=== PATIENT | female | born 1955 | race Caucasian/White ===

== ENCOUNTER → 2017-03-25 | Outpatient (CLI) | payer OTHER | LOC: BMCIMAGING 15:11 | PROVIDERS: ATTEND Internal Medicine | DX: Z12.31 Encounter for screening mammogram for malignant neoplasm of breast (principal); Z80.3 Family history of malignant neoplasm of breast | CPT/HCPCS: G0202 ==

== ENCOUNTER 2017-06-04 12:58 | Emergency (ER) | payer OTHER ==
[2017-06-04 13:17] VITALS: BP 141/94; PULSE 83; RESP 16; TEMP 97.7; O2SAT 95
[2017-06-04] MEDS ORDERED: DEXAMETHASONE 4 MG TAB PO ONE (14:54)
--- NOTE | 2017-06-04 14:54 | EDPHY ---
General - History Smoking Status: Never smoked Time Seen by Provider: 06/04/17 14:43 Narrative: CHIEF COMPLAINT: Possible allergic reaction HISTORY OF PRESENT ILLNESS: Patient presents with complaints of possible allergic reaction. She has been taking Macrobid from her primary care physician due to urinary tract infection. She completed the medication on Friday evening. Late Friday night into Friday morning she noted some rash. The rash started on the right hand, right leg and buttocks. This was a pruritic, raised, plaque type rash. It is steadily worsened to the point that it "is everywhere now." No chest pain or shortness of breath but she has noted some tingling of the lips and tongue today. Symptoms have improved with Benadryl but not resolved. She contacted her primary care physician, and they instructed her to come to the Urgent Care. She went to urgent care and they sent her to our facility for higher level of care. She has no difficulty swallowing or breathing. No cough. No history of anaphylaxis or angioedema. She does not take any ARBS or Hiro inhibitors. No other associated complaints or modifying factors. REVIEW OF SYSTEMS: Ten systems reviewed and are negative unless otherwise noted in the HPI PCP: Dr. Celeste Winkler SPECIALISTS: None PAST MEDICAL HISTORY: Hypothyroid, recent UTI PAST SURGICAL HISTORY: No recent surgeries SOCIAL HISTORY: Nonsmoker. Lives and works here locally FAMILY HISTORY: Noncontributory EXAMINATION General Appearance: Alert, no distress Head: normocephalic, atraumatic Eyes: Pupils equal and round, no conjunctival pallor or injection ENT, Mouth: Mucous membranes moist. Uvula is midline. Airway is widely patent. There is no drooling. No stridor. No trismus. No swelling of the lips or tongue. No abnormality of the floor of the mouth Neck: Normal inspection, supple, non-tender Respiratory: No retractions or distress Cardiovascular: Regular rate. Good signs of perfusion Gastrointestinal: Abdomen is soft and nontender. No distention or tympany. Neurological: A&O, nonfocal, normal gait Skin: Warm and dry, urticarial rash diffusely. No petechiae or purpura. Dermatographia Extremities: Nontender, no pedal edema Psychiatric: Mood and affect normal DIFFERENTIAL DIAGNOSES: Including but not limited to allergic reaction, anaphylaxis, angioedema MDM: 2:45 p.m. Likely allergic reaction to Macrobid. I do not appreciate any evidence of anaphylaxis or angioedema. Her airway is widely patent. There is no stridor or drooling. She does have a plaque type urticaria with dermatographia. I have ordered steroid and H2 jean. I have not ordered antihistamine as they make her too sleepy to drive and she did drive here. I do not feel she warrants epinephrine at this time, but I did offer to her and she has declined. Continue to monitor. Additionally, I have ordered a urinalysis as she recently finished treatment for UTI and concerned that it may not have resolved. 3:30 p.m. Urinalysis is unremarkable. I have re-evaluated the patient. She is resting comfortably in no acute distress. Do not appreciate any swelling of the lips or tongue. There is no swelling of the face or periorbital skin. Her airway is widely patent without drooling or trismus. I do feel she is stable for discharge home. We discussed further treatment with antihistamine, H2 antihistamine, short course of steroid. We discussed ED precautions for any swelling of the lips or tongue, difficulty swallowing or breathing. We discussed follow up with primary care physician. I do feel she is stable for discharge home at this time. SUPERVISION: Patient was independently examined, but I discussed the case with my secondary supervising physician Dr. Oliver ([facility]) Medical Decision Making: I did not see this patient while she was in emergency department. However care was discussed with patient in the. I agree with treatment plan and management ( Pako Oliver) - Objective Vital Signs: Initial Vital Signs Temperature (C) 36.5 C 06/04/17 13:13 Heart Rate 83 06/04/17 13:13 Respiratory Rate 16 06/04/17 13:13 Blood Pressure 141/94 H 06/04/17 13:13 O2 Sat (%) 95 06/04/17 13:13 O2 Delivery Mode Room Air Allergies/Adverse Reactions: Penicillins Allergy (Mild, Verified 06/04/17 13:12) Rash Home Medications: Medication Instructions Recorded Levothyroxine [Synthroid 100 mcg 100 mcg PO DAILY06 06/04/17 (*)] hydrOXYzine HCL [Hydroxyzine HCl] 50 mg PO Q6-8PRN PRN #7 tablet 06/04/17 predniSONE [Deltasone] 60 mg PO DAILY #6 tablet 06/04/17 Laboratory Results: 06/04/17 15:02 Urine Color PALE YELLOW Urine Appearance CLEAR Urine pH 7.0 (5.0-7.5) Ur Specific [place] 1.004 (1.002-1.030) Urine Protein NEGATIVE (NEGATIVE) Urine Ketones NEGATIVE (NEGATIVE) Urine Blood NEGATIVE (NEGATIVE) Urine Nitrate NEGATIVE (NEGATIVE) Urine Bilirubin NEGATIVE (NEGATIVE) Urine Urobilinogen NEGATIVE EU EU (0.2-1.0) Ur Leukocyte Esterase NEGATIVE (NEGATIVE) Urine Glucose NEGATIVE (NEGATIVE) Medications Given: Discontinued Medications Dexamethasone (Decadron) 8 mg PO EDNOW ONE Stop: 06/04/17 14:55 Last Admin: 06/04/17 15:38 Dose: 8 mg Famotidine (Pepcid) 20 mg PO EDNOW ONE Stop: 06/04/17 14:56 Last Admin: 06/04/17 15:38 Dose: 20 mg Departure - Departure Disposition: Home, Routine, Self-Care Clinical Impression: Allergic reaction Qualifiers: Encounter type: initial encounter Qualified Code(s): T78.40XA - Allergy, unspecified, initial encounter Condition: Good Instructions: Urticaria (ED), Anaphylaxis (ED) Additional Instructions: 1. Prednisone as prescribed on and Friday 2. Hydroxyzine as prescribed every 6-8 hours as needed for rash or itching 3. Pepcid [id number], 1 pill by mouth twice daily for the next 1-2 days 4. Follow up with primary care physician 5. ED precautions as discussed Referrals: Celeste Winkler MD [Primary Care Provider] - As per Instructions Prescriptions: hydrOXYzine HCL [Hydroxyzine HCl] 50 mg PO Q6-8PRN PRN #7 tablet PRN Reason: Itching predniSONE [Deltasone] 60 mg PO DAILY #6 tablet
[2017-06-04] MEDS ORDERED: FAMOTIDINE 20 MG TAB PO ONE (14:55)
== END 2017-06-04 16:03 | disposition home or self-care (01) ==
DX: R21 Rash and other nonspecific skin eruption (principal); T37.8X5A Adverse effect of other specified systemic anti-infectives and antiparasitics, initial encounter

== ENCOUNTER → 2018-04-10 | Outpatient (CLI) | payer OTHER | LOC: BMCIMAGING 07:52 | PROVIDERS: ATTEND Internal Medicine | DX: Z12.31 Encounter for screening mammogram for malignant neoplasm of breast (principal) ==